=== PATIENT | female | born 1950 | race Caucasian/White ===

== ENCOUNTER 2017-05-08 10:16 | Inpatient (IN) | payer MEDICARE ==
[~2017-05-08] VITALS: Ht 165.1 cm; Wt 91.2 kg
--- NOTE | ~2017-05-08 | PR ---
[place], [place] PROGRESS NOTE NAME: TIFFANY JUAREZ UNIT #: [id number] ROOM: 511 DOCTOR: JO ANN READ MD,CHARAN BIRTHDATE: [birth year] DOS: SUBJECTIVE: The patient was independently seen today with [id number] encounter. The history was confirmed and physical examination performed. All the labs were reviewed. Assessment and management decisions were made for today by myself. The note done by the medical anthropology director, was approved. The patient has shown significant improvement and reduction of respiratory symptoms. After the bronchoscopy, the bronchoscopy findings were discussed with patient in detail today. OBJECTIVE: VITAL SIGNS: Vital signs were noted essentially normal. Pulse oxygen saturation noted as 90% 2 L nasal cannula. LUNGS: Noted without any wheeze or crackles at this time. ABDOMEN: Noted soft, nontender. Bowel sounds present. EXTREMITIES: The patient was noted without any edema, clubbing or cyanosis. LABORATORY DATA: The Gram stain bronchial washing rather moderate white blood cells with few epithelial cells, few gram-positive cocci in pairs and chains. Preliminary showing normal silvio cultures. IMPRESSION: The patient was noted with significant reduction in improvement in the respiratory status after the bronchoscopy at this time with progressive resolution of symptoms. PLAN OF TREATMENT: Consider discharge for patient home on oral medication. The patient as tapering prednisone and antibiotics. Tobacco cessation was addressed with the patient. Outpatient follow rather was also advised to the patient post-discharge. CHARAN CHERRY MD CM:PNTRANS [id number] CHARAN READ MD 05/13/17 0044 interface
--- NOTE | ~2017-05-08 | PROC NOTE ---
[place], [place] PROCEDURE NOTE NAME: TIFFANY JUAREZ UNIT #: [id number] ROOM: 511 DOCTOR: JO ANN READ MD,CHARAN BIRTHDATE: [birth year] DOS: 05/11/2017 PREOPERATIVE DIAGNOSES: Persistent severe nonproductive cough, which was nonresolving with maximum medical therapy with wheezing as well. POSTOPERATIVE DIAGNOSES: Removal of moderate to large mucus plug and endobronchial tree segments and subsegments bilaterally. FINDINGS: There were no endobronchial obstructive lesions. PROCEDURE DESCRIPTION: Informed consent obtained for the patient. The patient brought to the OR and placed in supine position. Conscious sedation administered by the Anesthesia Department. After that, airway introduced into the mouth. Bronchoscope advanced into the airway into laryngeal area. Epiglottis and vocal cords were seen. The vocal cords were moving symmetrically with movements. Bronchoscope advanced to the vocal cord and tracheal lumen. Tracheal lumen was noted with moderate amount of thick mucoid secretions suctioned out to the efren level. Small to moderate amount of thick mucus plugs, which was present in endobronchial tree was suctioned out with normal saline wash without any difficulty. There were no endobronchial obstructive lesions. The bronchial washings sent for all the cultures. Procedure was tolerated by the patient without any difficulty. Postoperative finding will be discussed with the patient once the patient recovered the effects of acute sedation. CHARAN CHERRY MD CM:PROCNOTE:PROCEDURE NOTE [id number] CHARAN READ MD
--- NOTE | ~2017-05-08 | PR ---
[place], [place] PROGRESS NOTE NAME: TIFFANY JUAREZ UNIT #: [id number] ROOM: 511 DOCTOR: CARLY SUNG DO BIRTHDATE: [birth year] DOS: 05/11/2017 SUBJECTIVE: The patient was seen and examined this morning with Dr. Cherry. The patient denies of any concerns at this time. The patient says that shortness of breath has improved, but continues to have exertional dyspnea. OBJECTIVE: VITAL SIGNS: Temperature 98.4, pulse 82, respiratory rate 18, blood pressure 134/61, pulse ox is 93 on 3 liters nasal cannula. SKIN: Shows no changes. NECK: Supple. CARDIOVASCULAR: S1, S2 audible. LUNGS: Dyspnea on exertion, cough, respiratory distress, mild expiratory wheezing. EXTREMITIES: Show no clubbing or cyanosis. LABORATORY DATA: White cell count 16.8, hemoglobin 14, platelet count of 302. BUN 16, creatinine of 0.73. INR of 1. Bronchial culture is pending to date. Blood culture is pending to date. ASSESSMENT: 1. Acute exacerbation of chronic obstructive pulmonary disease and/or bronchial asthma. 2. Acute bronchitis. 3. Tobacco abuse. 4. Musculoskeletal chest pain due to excessive coughing and inability to produce sputum. PLAN OF MANAGEMENT: 1. The patient had bronchoscopy this morning, which showed mucus plug and tracheobronchitis. The patient will be continued on Levaquin, DuoNeb, Solu-Medrol and Mucinex. 2. Supportive care. CARLY SUNG DO [place], [place] PROGRESS NOTE NAME: TIFFANY JUAREZ UNIT #: [id number] ROOM: 511 DOCTOR: CARLY SUNG DO BIRTHDATE: [birth year] CHARAN CHERRY MD CM:PNTRANS [id number] 20 CARLY SUNG DO 05/11/17 172 interface
--- NOTE | ~2017-05-08 | CON ---
[place], [place] REPORT OF CONSULTATION NAME: TIFFANY JUAREZ UNIT #: [id number] ROOM: 511 DOCTOR: JO ANN READ MDCHARAN BIRTHDATE: [birth year] DOS: 05/10/2017 PULMONARY CONSULTATION EVALUATION AND MANAGEMENT CONSULTATION ORDERED BY: Hospitalist services. REASON FOR CONSULTATION: Exacerbation of COPD with severe nonproductive cough. HISTORY OF PRESENT ILLNESS: A 66-year-old white female unknown to me from the past. The patient has been admitted to the hospital 05/08/2017, under care of the hospitalist services. The patient reported symptoms of having progressive increased shortness of breath, which has been getting gradually worse. The patient was seen in the urgent care clinic for the symptoms. The symptoms were present for about 3 weeks. She has been treated with the medications, antibiotics and other, but did not respond to the treatment. Coughing has become very severe resulting in pain, which is described in the area under the ribs cage as well as anteriorly. The patient has been currently admitted to the hospital for medical management of acute exacerbation of COPD, new onset. The patient stated the coughing remains nonproductive and still present intermittently, episodic. She does have symptoms of wheezing, which were noted somewhat decreased. Shortness of breath occurs only with exertion, not present at rest. Denies symptoms of epistaxis. REVIEW OF SYSTEMS: CARDIOVASCULAR: Denies anginal pain, edema, pain of the lower extremities. The current pain described in the chest is noted noncardiac. GASTROINTESTINAL: Denies dysphagia, nausea, vomiting, diarrhea, abdominal pain, hematemesis, melena, or abnormal weight loss. GENITOURINARY: Denies dysuria, suprapubic pain, hematuria. SKIN: Denies lesions or rashes. MUSCULOSKELETAL: Denies acute joint pain, redness, or tenderness. CENTRAL NERVOUS SYSTEM: No dizziness, headache, diplopia, syncopal episodes or seizures. Remaining systems were reviewed with the patient, they were noted all negative. PAST MEDICAL HISTORY: The patient was essentially noted as non-diagnosed with only history noted of chronic tobacco use. SOCIAL HISTORY: The patient stated that she is , has 2 children. Smoking ranges between half a pack to a pack of cigarettes per day, stating that she has not smoked cigarettes in the past few weeks since became acutely and could not smoke. Denies any occupation-related pulmonary exposure. FAMILY HISTORY: The patient's mother already with complication related to diabetes. History ____ father was unknown. PAST SURGICAL HISTORY: Reported surgery of the knee, hysterectomy and appendectomy. DRUG ALLERGIES: Noted as no known drug allergies. [place], [place] REPORT OF CONSULTATION NAME: TIFFANY JUAREZ UNIT #: [id number] ROOM: 511 DOCTOR: CHARAN SNIDER MD BIRTHDATE: [birth year] PHYSICAL EXAMINATION: GENERAL: The patient is a 66-year-old female who has been currently sitting on the bed. The patient without any distress noted with coughing intermittently without any sputum expectoration. VITAL SIGNS: The patient's height was noted 5 feet 5 inches, weight of 201 pounds, BMI 33.4. Vital signs of the patient which were recorded show a normal temperature, respiratory rate recorded as 20-18, heart rate of 92-74, blood pressure 136/60-108/75. Pulse oxygen saturation on 3-1/2 liters nasal cannula is noted 92% saturation. HEENT: Examination shows moderate obesity. Head was atraumatic. Eyes nonicterus. NECK: Supple. CARDIOVASCULAR: S1, S2 audible. LUNGS: Reduced breath sounds bilaterally with expiratory wheezing, decreased air exchange. ABDOMEN: Soft, obese, nontender. EXTREMITIES: Noted without any wheezing or crackles at the present time. The patient was noted without any edema, clubbing or cyanosis. NEUROLOGIC: Cranial nerves 2-12 intact. No focal deficits. MUSCULOSKELETAL: Does not show any acute deformities. LABORATORY DATA: CBC 05/08/2017, WBC count 13.1. Remaining CBC were normal. Lactic acid 1.1. CMP 05/08/2017 was noted as glucose 123, BUN and creatinine were normal. The troponins were normal. PT/PTT were noted normal on 05/08/2017. Troponins for additional 2 sets were noted as normal. CBC on 05/09/2017, WBC count 15,000, hemoglobin and hematocrit normal, platelet count was normal. CMP of 05/09/2017 was normal. CMP this morning, glucose 168. Remaining CMP was normal. The blood culture on 05/08/2017 was noted as no bacterial growth . Review of the radiology data, chest x-ray that was done on 05/08/2017 was reviewed. It shows increased markings noted in the lungs without any discrete acute pulmonary infiltration. Small area of linear atelectasis noted in the lungs in the left side as well, which is platelike atelectasis. A CT scan of the chest that was done as well on 05/08/2017 was personally reviewed. It shows ground glass opacity noted in the left lower lobe superior segment. Other coarse markings were noted without any discrete large lung masses. A small nodule was present in the centrilobular area of the lower lungs as well. Additional area of linear atelectasis visible on the chest x-ray was corresponding to the current finding of the left lower lobe as well. IMPRESSION: 1. The patient who has been currently admitted to the hospital with history of chronic nicotine abuse without any known past medical history except tobacco use, currently noted with acute exacerbation of chronic obstructive pulmonary disease and/or bronchial asthma, combination of both with acute bronchitis. 2. Acute bronchiolitis related to tobacco use ____ etiology which could be viral in origin may be considered as well. 3. Severe pain which has been noted in the chest is musculoskeletal in origin because of excessive coughing, inability to expectorate any sputum. [place], [place] REPORT OF CONSULTATION NAME: TIFFANY JUAREZ UNIT #: [id number] ROOM: 511 [facility] [birth year] PLAN OF MANAGEMENT: Respiratory viral panel was obtained for nasopharyngeal swab. Continuation of the bronchodilators, Mucinex and flutter valve. Continue current dose of corticosteroids as well. Abstinence from tobacco use was discussed with the patient, nicotine replacement patches. The patient will likely use them for nicotine withdrawal ____ will be available as well. She will benefit from fiberoptic bronchoscopy planned to be done in the morning. Risks and benefits of procedure have been discussed with the patient and she was agreeable for the procedure. Further treatment changes need to be done for the patient based on progression of the illness. Usual care, other supportive plan of therapy and care. Additional treatment changes need to be done for this patient based on the progression of the illness. Thanks for allowing me to participate in the care of this patient. CHARAN CHERRY MD CM:CONSTR:REPORT OF CONSULTATION 1225 05/11/17 0549 interface
--- NOTE | ~2017-05-08 | PR ---
[place], [place] PROGRESS NOTE NAME: TIFFANY JUAREZ UNIT #: [id number] ROOM: 511 DOCTOR: CHARAN SNIDER MD BIRTHDATE: [birth year] DOS: 05/11/2017 The patient was independently seen and examined with [id number] encounter. History was confirmed from the patient. Physical examination performed. All the labs reviewed. Assessment and management changes as necessary were personally made for today's visit as well. SUBJECTIVE: The patient is currently noted n.p.o. past midnight for bronchoscopy that was planned to be done today. She continues with symptoms of cough, which remains persistent and nonproductive, associated with pain under the rib cage in the muscles. She was continued on the steroids as well as the bronchodilators given. OBJECTIVE: VITAL SIGNS: Normal temperature, respiratory rate 19, heart rate 79, blood pressure 108/72 recorded this morning at 8 o'clock. The pulse oxygen saturation on 2 L nasal cannula 95% saturation. HEENT: Shows no new change. NECK: Supple. CARDIOVASCULAR: S1, S2 audible. LUNGS: Noted without any crackles. Decreased breath sounds noted with expiratory wheezing. ABDOMEN: Soft, nontender. LABORATORY DATA: CBC this morning, WBC count 16.8. Remaining CBC normal with 86% segmented neutrophils. CMP was normal, glucose 154, mildly elevated. IMPRESSION: Acute tracheobronchitis. Exacerbation of chronic obstructive pulmonary disease or bronchial asthma, new onset with recurrent musculoskeletal chest pain. Nonproductive cough. Preop for bronchoscopy. PLAN OF TREATMENT: Proceed with bronchoscopy at this time without any changes. Continuation of the treatment therapy, plan of management, and care plan as previously made. Any additional change in treatment needs to be done after bronchoscopy as necessary. [place], [place] PROGRESS NOTE NAME: TIFFANY JUAREZ UNIT #: [id number] ROOM: 511 DOCTOR: CHARAN SNIDER MD BIRTHDATE: [birth year] CHARAN CHERRY MD CM:PNTRANS [id number] CHARAN READ MD 05/12/17 0322 interface
--- NOTE | ~2017-05-08 | PR ---
[place], [place] PROGRESS NOTE NAME: TIFFANY JUAREZ UNIT #: [id number] ROOM: 511 DOCTOR: CARLY SUNG DO BIRTHDATE: [birth year] DOS: 05/12/2017 SUBJECTIVE: The patient was seen and examined this morning with Dr. Cherry. The patient denies of any complaints at this time. The patient states that her shortness of breath has improved. OBJECTIVE: VITAL SIGNS: Temperature 98.6, pulse 80, respiratory rate 18, blood pressure 125/56, pulse ox 93 on 2 liters nasal cannula. HEENT: Shows no changes. NECK: Supple. CARDIOVASCULAR: S1, S2 audible. RESPIRATORY: Lungs clear to auscultation bilaterally. No wheezes, rales or rhonchi heard. EXTREMITIES: Shows no clubbing or cyanosis. LABORATORY DATA: White cell count 16.8, hemoglobin 14, platelet count of 302, BUN 16, creatinine 0.73. Serology is pending to date. Microbiology: Blood cultures on 05/12/2017 preliminary shows no growth. Bronch cultures from 05/11/2017 . Fungal culture final shows no fungal element and lung culture and final Gram stain shows moderate white blood cells, few epithelial, few gram-positive cocci in pairs, chains and clusters. Blood culture preliminary shows normal silvio. ASSESSMENT: 1. Acute exacerbation of chronic obstructive pulmonary disease, improving. 2. Bronchial asthma. 3. Tobacco abuse. 4. Musculoskeletal chest pain due to excessive coughing and inability to produce sputum. PLAN OF MANAGEMENT: 1. The patient's bronchial culture preliminary shows normal silvio. The patient can be discharged home with doxycycline 100 mg b.i.d. for 7 days and prednisone taper. The patient should follow up with Dr. Cherry in 2 weeks as an outpatient for continued care. 2. Supportive care. CARLY SUNG DO [place], [place] PROGRESS NOTE NAME: TIFFANY JUAREZ UNIT #: [id number] ROOM: 511 DOCTOR: CARLY SUNG DO BIRTHDATE: [birth year] CHARAN CHERRY MD CM:GONZÁLEZ 0849 56 CARLY SUNG DO 05/12/17 105 interface
[2017-05-08 10:49] VITALS: BP 149/84
[2017-05-08 11:10] LABS: BASO # 0.1 10*3/uL (0.0-0.1); BASO % 0.7 % (0.0-1.0); EOS # 0.1 10*3/uL (0.0-0.4); EOS % 0.9 % (1.0-4.0); HEMATOCRIT 44.7 % (37.0-47.0); HEMOGLOBIN 14.6 g/dl (12.0-16.0); LYMPH # 1.4 10*3/uL (1.3-4.4); LYMPH % 10.7 % (27.0-41.0); MEAN CELL VOLUME 97.2 fl (81.0-99.0); MEAN CORPUSCULAR HGB 31.7 pg (27.0-31.0); MEAN CORPUSCULAR HGB CONC 32.7 g/dl (33.0-37.0); MEAN PLATELET VOLUME 9.6 fl (9.6-12.3); MONO # 0.9 10*3/uL (0.1-1.0); MONO % 6.8 % (3.0-9.0); NEUT # 10.3 10*3/uL (2.3-7.9); NEUT % 78.9 % (47.0-73.0); PLATELET COUNT AUTOMATED 263 10*3/uL (130-400); RED CELL DISTRI WIDTH 11.9 % (0-14.5); WHITE BLOOD COUNT 13.1 10*3/uL (4.8-10.8)
[2017-05-08 11:24] LABS: ACT PARTIAL THROMBO TIME 21.8 SECONDS (20.8-31.5)
[2017-05-08 11:26] LABS: ALBUMIN 3.3 gm/dl (3.1-4.5); ALKALINE PHOSPHATASE 85 U/L (45-117); BUN 15 mg/dl (7-24); CHLORIDE 103 mmol/L (98-107); CKMB < 0.5 ng/ml (0.5-3.6); CPK 100 U/L (26-192); CREATININE 0.69 mg/dL (0.55-1.02); LIPASE 96 U/L (73-393); MAGNESIUM 2.3 mg/dL (1.5-2.1); SGOT/AST 22 IU/L (3-35); SGPT/ALT 28 U/L (12-78); SODIUM 138 mmol/L (136-145); TOTAL PROTEIN 7.7 gm/dL (6.4-8.2); TROPONIN I < 0.015 ng/ml (<0.045)
[2017-05-08 11:53] LABS: BILIRUBIN 1+ (NEGATIVE); BLOOD TRACE-INTACT (NEGATIVE); CLARITY SL CLOUDY (CLEAR); COLOR YELLOW (YELLOW); GLUCOSE NEGATIVE (NEGATIVE); KETONE TRACE (NEGATIVE); LEUKO ESTERASE NEGATIVE (NEGATIVE); NITRITE NEGATIVE (NEGATIVE); PH 5.5 (5.0-9.0); SPECIFIC GRAVITY >= 1.030 (1.005-1.030); UROBILINOGEN 0.2 E.U./dl (0.2-1.0)
[2017-05-08 12:20] LABS: BACTERIA 2+; MUCOUS 2+
[2017-05-08 13:15] VITALS: BP 132/70
[2017-05-08 16:00] VITALS: BP 146/67
[2017-05-08 20:00] VITALS: BP 156/62
[2017-05-08 20:45] VITALS: BP 116/60
[2017-05-09] VITALS: BP 131/54
[2017-05-09 06:13] LABS: HEMATOCRIT 39.3 % (37.0-47.0); HEMOGLOBIN 12.9 g/dl (12.0-16.0); MEAN CELL VOLUME 96.6 fl (81.0-99.0); MEAN CORPUSCULAR HGB 31.7 pg (27.0-31.0); MEAN CORPUSCULAR HGB CONC 32.8 g/dl (33.0-37.0); MEAN PLATELET VOLUME 10.1 fl (9.6-12.3); PLATELET COUNT AUTOMATED 258 10*3/uL (130-400); RED BLOOD COUNT 4.07 10*6/uL (4.10-5.10); RED CELL DISTRI WIDTH 11.9 % (0-14.5)
[2017-05-09 06:37] LABS: BASOPHILS 1 % (0-1); TOTAL CELLS COUNTED 100 #CELLS
[2017-05-09 06:38] LABS: ALBUMIN 3.1 gm/dl (3.1-4.5); BUN 11 mg/dl (7-24); CHLORIDE 103 mmol/L (98-107); CHOLESTEROL 148 mg/dL (<200); CREATININE 0.67 mg/dL (0.55-1.02); PHOSPHOROUS 3.2 mg/dL (2.5-4.9); PLATELET SUFFICIENCY NORMAL (NORMAL); POTASSIUM 4.5 mmol/L (3.5-5.1); SGOT/AST 10 IU/L (3-35); SGPT/ALT 22 U/L (12-78); SODIUM 138 mmol/L (136-145); TRIGLYCERIDES 72 mg/dl (<150); VLDL CHOLESTEROL 14 mg/dL (6-40)
[2017-05-09 06:46] LABS: ALKALINE PHOSPHATASE 73 U/L (45-117); FREE T4 1.31 ng/dl (0.76-1.46); HDL CHOLESTEROL 40 mg/dl (40-60); LDL CHOLESTEROL 94 mg/dL (9-159)
[2017-05-09 08:00] VITALS: BP 151/53
[2017-05-09 08:08] LABS: VITAMIN D, 25-HYDROXY 37.6 ng/mL (30-100)
[2017-05-09 12:00] VITALS: BP 149/67
[2017-05-09 16:00] VITALS: BP 131/56
[2017-05-09 20:00] VITALS: BP 140/60
[2017-05-10] VITALS: BP 149/76
[2017-05-10 07:04] LABS: HEMATOCRIT 42.6 % (37.0-47.0); HEMOGLOBIN 14.1 g/dl (12.0-16.0); MEAN CELL VOLUME 97.9 fl (81.0-99.0); MEAN CORPUSCULAR HGB 32.4 pg (27.0-31.0); MEAN CORPUSCULAR HGB CONC 33.1 g/dl (33.0-37.0); MEAN PLATELET VOLUME 10.2 fl (9.6-12.3); PLATELET COUNT AUTOMATED 300 10*3/uL (130-400); RED BLOOD COUNT 4.35 10*6/uL (4.10-5.10); RED CELL DISTRI WIDTH 11.8 % (0-14.5); WHITE BLOOD COUNT 20.5 10*3/uL (4.8-10.8)
[2017-05-10 07:33] LABS: ALBUMIN 3.1 gm/dl (3.1-4.5); BUN 12 mg/dl (7-24); CHLORIDE 98 mmol/L (98-107); CREATININE 0.69 mg/dL (0.55-1.02); MAGNESIUM 2.4 mg/dL (1.5-2.1); POTASSIUM 4.5 mmol/L (3.5-5.1); SGOT/AST 15 IU/L (3-35); SGPT/ALT 21 U/L (12-78); SODIUM 137 mmol/L (136-145)
[2017-05-10 07:35] LABS: PHOSPHOROUS 3.4 mg/dL (2.5-4.9); TOTAL PROTEIN 7.8 gm/dL (6.4-8.2)
[2017-05-10 07:39] LABS: TOTAL CELLS COUNTED 100 #CELLS
[2017-05-10 07:40] LABS: PLATELET SUFFICIENCY NORMAL (NORMAL)
[2017-05-10 07:42] LABS: ALKALINE PHOSPHATASE 80 U/L (45-117)
[2017-05-10 08:00] VITALS: BP 108/75
[2017-05-10 11:47] VITALS: BP 136/62
[2017-05-10 16:00] VITALS: BP 132/58
[2017-05-10 20:00] VITALS: BP 135/59
[2017-05-11] VITALS (9 sets, daily range): BP systolic 108–146; BP diastolic 49–78
[2017-05-11 06:55] LABS: HEMATOCRIT 42.5 % (37.0-47.0); MEAN CELL VOLUME 97.3 fl (81.0-99.0); MEAN CORPUSCULAR HGB CONC 32.9 g/dl (33.0-37.0); MEAN PLATELET VOLUME 10.1 fl (9.6-12.3); PLATELET COUNT AUTOMATED 302 10*3/uL (130-400); RED BLOOD COUNT 4.37 10*6/uL (4.10-5.10); RED CELL DISTRI WIDTH 11.9 % (0-14.5); WHITE BLOOD COUNT 16.8 10*3/uL (4.8-10.8)
[2017-05-11 07:22] LABS: ALBUMIN 3.2 gm/dl (3.1-4.5); BUN 16 mg/dl (7-24); CHLORIDE 99 mmol/L (98-107); POTASSIUM 4.8 mmol/L (3.5-5.1); SODIUM 138 mmol/L (136-145)
[2017-05-11 07:26] LABS: ALKALINE PHOSPHATASE 71 U/L (45-117); CREATININE 0.73 mg/dL (0.55-1.02); SGOT/AST 8 IU/L (3-35); SGPT/ALT 22 U/L (12-78); TOTAL PROTEIN 7.4 gm/dL (6.4-8.2)
[2017-05-11 07:53] LABS: PLATELET SUFFICIENCY NORMAL (NORMAL); TOTAL CELLS COUNTED 100 #CELLS; TOXIC GRANULATION SLIGHT
[2017-05-12] VITALS: BP 125/56
[2017-05-12 08:00] VITALS: BP 114/56
[2017-05-12] MEDS ORDERED: NICODERM CQ1 EACH T (10:19)
[2017-05-12 12:00] VITALS: BP 112/52
[2017-05-12] MEDS ORDERED: DOXYCYCLINE100 M3 PO (13:56)
[2017-05-12] MEDS ORDERED: PREDNISONE10 MG PO (13:56)
[2017-05-12 16:00] VITALS: BP 110/76; BP 143/82
[2017-05-12 17:06] LABS: ACID FAST SMEAR Negative (.); ACID FAST SPEC PROCESSING Concentration (.)
[2017-05-15 13:07] LABS: ADENOVIRUS Negative (Negative); INFLUENZA A Negative (Negative); INFLUENZA B Negative (Negative); METAPNEUMOVIRUS Negative (Negative); PARAINFLUENZA 1 Negative (Negative); PARAINFLUENZA 2 Negative (Negative); PARAINFLUENZA 3 Negative (Negative); RHINOVIRUS Positive (Negative); RSV A Negative (Negative); RSV B Negative (Negative)
== END 2017-05-12 17:25 | disposition home or self-care (01) | DRG 871 ==
LOC: ED 10:16 → EDHOLD 12:30 → 5E 12:30
PROVIDERS: Internal Medicine Critical Care Medicine; Nurse Practitioner Family; Registered Nurse; ADMIT Internal Medicine
PROC: 0BC48ZZ Extirpation of Matter from Right Upper Lobe Bronchus, Via Natural or Artificial Opening Endoscopic (ICD-10-PCS; principal; 2017-05-11)
PROC: 0BC78ZZ Extirpation of Matter from Left Main Bronchus, Via Natural or Artificial Opening Endoscopic (ICD-10-PCS; principal; 2017-05-11)
PROC: 0BC38ZZ Extirpation of Matter from Right Main Bronchus, Via Natural or Artificial Opening Endoscopic (ICD-10-PCS; principal; 2017-05-11)
PROC: 0BCB8ZZ Extirpation of Matter from Left Lower Lobe Bronchus, Via Natural or Artificial Opening Endoscopic (ICD-10-PCS; principal; 2017-05-11)
PROC: 0BC68ZZ Extirpation of Matter from Right Lower Lobe Bronchus, Via Natural or Artificial Opening Endoscopic (ICD-10-PCS; principal; 2017-05-11)
PROC: 0BC58ZZ Extirpation of Matter from Right Middle Lobe Bronchus, Via Natural or Artificial Opening Endoscopic (ICD-10-PCS; principal; 2017-05-11)
PROC: 0BC18ZZ Extirpation of Matter from Trachea, Via Natural or Artificial Opening Endoscopic (ICD-10-PCS; principal; 2017-05-11)
PROC: 0BC88ZZ Extirpation of Matter from Left Upper Lobe Bronchus, Via Natural or Artificial Opening Endoscopic (ICD-10-PCS; principal; 2017-05-11)
PROC: 0BC98ZZ Extirpation of Matter from Lingula Bronchus, Via Natural or Artificial Opening Endoscopic (ICD-10-PCS; principal; 2017-05-11)
DX: A41.9 Sepsis, unspecified organism (principal); J18.9 Pneumonia, unspecified organism; J96.01 Acute respiratory failure with hypoxia; J44.0 Chronic obstructive pulmonary disease with (acute) lower respiratory infection; J44.1 Chronic obstructive pulmonary disease with (acute) exacerbation; R07.89 Other chest pain; F17.210 Nicotine dependence, cigarettes, uncomplicated; R65.20 Severe sepsis without septic shock; E83.41 Hypermagnesemia; R73.03 Prediabetes; R31.9 Hematuria, unspecified; Z90.710 Acquired absence of both cervix and uterus; Z90.49 Acquired absence of other specified parts of digestive tract; Z71.6 Tobacco abuse counseling; Z83.3 Family history of diabetes mellitus

== ENCOUNTER → 2017-08-11 | Day surgery (SDC) | payer MEDICARE ==
[~2017-08-11] VITALS: Ht 165.1 cm; Wt 90.7 kg
[~2017-08-11] MED LIST: DOXYCYCLINE100 M3 PO; NICODERM CQ1 EACH T; OXYGEN NAS; PREDNISONE10 MG PO; PROVENTIL HFA6.7 GM INH; SOOTHE MC
--- NOTE | ~2017-08-11 | O ---
[place], [place] OPERATIVE NOTE NAME: TIFFANY JUAREZ UNIT #: [id number] ROOM: DOCTOR: VERN YEH MD BIRTHDATE: [birth year] DOS: 08/11/2017 INDICATIONS: A 67-year-old patient who presented with chief complaint of solid food dysphagia, undergoing investigation. ALLERGIES: No known medication. PAST MEDICAL HISTORY: COPD. PAST SURGICAL HISTORY: Appendectomy, hysterectomy, left knee. SOCIAL HISTORY: Quit smoking, alcohol 1-2 bottles of beer daily. FAMILY HISTORY: Noncontributory. PROCEDURE: Today's procedure part of investigation is panendoscopy plus biopsy plus esophageal balloon dilation to size 20. PREMEDICATION: Versed and Diprivan. SCOPE: Olympus forward-viewing gastroscope Q10 video. REPORT: After putting the patient in left lateral position and application of lubricant to the scope, the scope was introduced. Thereafter, under direct visualization, advanced through the length of the esophagus without difficulty. Small hiatal hernia noticed. Gastric pouch was entered. Gastritis was noticed. Biopsy from antrum was obtained. Duodenal bulb, second and third part within normal limits. Balloon size 20 was introduced into the gastric pouch inflated to size 20 and gradually sweep along the length of the esophagus. Highest resistance in the lower esophagus was identified as well as upper esophagus. The patient extubated, tolerated procedure well. IMPRESSION: Benign esophageal stricture, status post balloon dilation, small hiatal hernia, gastritis. PLAN AND DISCUSSION: Supportive therapy and we are going to continue with her present medication continuing with omeprazole 20 mg 1 every day, antireflux with elevation of the head of the bed 6 inch all time and clinical reassessment. [place], [place] OPERATIVE NOTE NAME: TIFFANY JUAREZ UNIT #: [id number] ROOM: DOCTOR: VERN YEH MD BIRTHDATE: [birth year] VERN YEH MD CM:OPRECORD:OPERATIVE NOTE 1614 1637 VERN YEH MD 08/11/17 1637 interface
[2017-08-11 14:00] VITALS: BP 156/74
[2017-08-11 16:08] VITALS: BP 130/67
[2017-08-11 16:23] VITALS: BP 116/74
[2017-08-11 16:38] VITALS: BP 139/75
== END | disposition home or self-care (01) ==
LOC: SDC 08-10 08:00
DX: K22.2 Esophageal obstruction (principal); K44.9 Diaphragmatic hernia without obstruction or gangrene; K29.50 Unspecified chronic gastritis without bleeding; J44.9 Chronic obstructive pulmonary disease, unspecified; Z90.49 Acquired absence of other specified parts of digestive tract; Z90.710 Acquired absence of both cervix and uterus; Z87.891 Personal history of nicotine dependence

== ENCOUNTER → 2019-05-01 | Outpatient (CLI) | payer MEDICARE | END | disposition home or self-care (01) | LOC: RAD 10:23 → MAMMO 10:40 → RAD 10:40 | DX: N95.9 Unspecified menopausal and perimenopausal disorder (principal); M19.90 Unspecified osteoarthritis, unspecified site; Z90.710 Acquired absence of both cervix and uterus; Z87.891 Personal history of nicotine dependence ==

== ENCOUNTER → 2019-07-22 | Outpatient (CLI) | payer MEDICARE | END | disposition home or self-care (01) | LOC: MAMMO 08:30 | DX: Z12.31 Encounter for screening mammogram for malignant neoplasm of breast (principal) ==

== ENCOUNTER → 2021-01-08 | Outpatient (CLI) | payer MEDICARE | END | disposition home or self-care (01) | LOC: US 10:45 | PROVIDERS: ATTEND Internal Medicine | DX: I65.22 Occlusion and stenosis of left carotid artery (principal); R55 Syncope and collapse; R00.0 Tachycardia, unspecified ==

== ENCOUNTER → 2021-01-14 | Outpatient (CLI) | payer OTHER | END | disposition home or self-care (01) | LOC: CARD 12:29 | PROVIDERS: ATTEND Internal Medicine | DX: I51.7 Cardiomegaly (principal); E65 Localized adiposity; R55 Syncope and collapse; R00.0 Tachycardia, unspecified ==

== ENCOUNTER → 2022-10-06 | Outpatient (CLI) | payer OTHER | END | disposition home or self-care (01) | LOC: MAMMO 11:00 | PROVIDERS: ATTEND Internal Medicine | DX: Z12.31 Encounter for screening mammogram for malignant neoplasm of breast (principal); N64.9 Disorder of breast, unspecified ==

== ENCOUNTER → 2022-10-21 | Outpatient (CLI) | payer OTHER ==
[~2022-10-21] MED LIST changes: +OYSTER SHELL PO; +ZESTRIL5 MG PO
== END | disposition home or self-care (01) ==
LOC: CARD 00:32
PROVIDERS: ATTEND Internal Medicine
DX: I10 Essential (primary) hypertension (principal)

== ENCOUNTER → 2023-10-25 | Outpatient (CLI) | payer OTHER ==
[2023-10-25 11:41] LABS: TOTAL PROTEIN 7.3 gm/dL (6.0-8.0)
== END ==
LOC: LAB 09:24 → US 10:00
PROVIDERS: ATTEND Internal Medicine
DX: Z13.0 Encounter for screening for diseases of the blood and blood-forming organs and certain disorders involving the immune mechanism (principal); Z13.1 Encounter for screening for diabetes mellitus; Z13.21 Encounter for screening for nutritional disorder; Z13.220 Encounter for screening for lipoid disorders; Z13.228 Encounter for screening for other metabolic disorders; Z13.29 Encounter for screening for other suspected endocrine disorder; Z13.6 Encounter for screening for cardiovascular disorders; Z13.89 Encounter for screening for other disorder; Z13.9 Encounter for screening, unspecified; K76.0 Fatty (change of) liver, not elsewhere classified; M75.81 Other shoulder lesions, right shoulder; M19.011 Primary osteoarthritis, right shoulder; R79.9 Abnormal finding of blood chemistry, unspecified; R74.8 Abnormal levels of other serum enzymes; M25.511 Pain in right shoulder; I10 Essential (primary) hypertension; E78.5 Hyperlipidemia, unspecified